=== PATIENT | male | born 1950 | race Two or more races ===

== ENCOUNTER 2022-12-12 10:01 | Outpatient (CLI) | payer OTHER | END 2022-12-12 10:05 | disposition home or self-care (01) | LOC: SONOGRAMA 10:01 | PROVIDERS: ATTEND Pathology Anatomic Pathology & Clinical Pathology | DX: D34 Benign neoplasm of thyroid gland (principal); E04.2 Nontoxic multinodular goiter; E04.9 Nontoxic goiter, unspecified ==